=== PATIENT | female | born 1985 | race Caucasian/White ===

== ENCOUNTER → 2017-11-30 | Outpatient (CLI) | payer OTHER ==
[2017-11-30 13:37] LABS: BASO % 0.6 % (0.0-1.0); EOS # 0.1 10^3/uL (0.0-0.50); EOS % 0.9 % (0.0-3.0); HEMATOCRIT 35.8 % (36.0-47.0); HEMOGLOBIN 12.2 g/dl (12.0-15.5); IMMATURE GRANULOCYTE % 0.9 % (0-3.0); LYMPH # 1.5 10^3/uL (1.5-4.5); LYMPH % 22.2 % (24.0-44.0); MEAN CORPUSCULAR HEMOGLOBIN 30.3 pg (27.0-33.0); MEAN CORPUSCULAR HGB CONC 34.1 g/dl (32.0-36.5); MEAN CORPUSCULAR VOLUME 89.1 fl (80.0-96.0); MONO # 0.3 10^3/uL (0.0-0.8); MONO % 4.5 % (0.0-5.0); NEUTROPHILS # 4.9 10^3/uL (1.8-7.7); NEUTROPHILS % 70.9 % (36.0-66.0); PLATELET COUNT, AUTOMATED 189 10^3/uL (150-450); RED BLOOD COUNT 4.02 10^6/uL (4.00-5.40); RED CELL DISTRIBUTION WIDTH 13.2 % (11.5-14.5); WHITE BLOOD COUNT 6.8 10^3/uL (4.0-10.0)
[2017-11-30 15:02] LABS: GLUCOSE CHALLENGE TEST 1 HOUR 117 MG/DL (LESS THAN 140)
[2017-11-30 15:18] LABS: CHLAMYDIA DNA AMPLIFICATION NEGATIVE (NEGATIVE); GC DNA AMPLIFICATION NEGATIVE (NEGATIVE)
[2017-11-30 17:19] LABS: ESTIMATED AVERAGE GLUCOSE 100 MG/DL (60-110); HEMOGLOBIN A1c 5.1 %
[2017-12-01 11:54] LABS: RUBELLA IgG QUALITATIVE IMMUNE (IMMUNE)
[2017-12-01 11:59] LABS: HBsAg Prenatal NEGATIVE (NEGATIVE)
[2017-12-01 12:25] LABS: HEPATITIS C VIRUS ABY INDEX 0.2 INDEX (<0.8)
[2017-12-01 12:26] LABS: HIV 1&2 SCREEN CENTAUR NEGATIVE (NEGATIVE)
== END ==
LOC: M SMT 10:14
DX: Z34.82 Encounter for supervision of other normal pregnancy, second trimester (principal); Z3A.18 18 weeks gestation of pregnancy

== ENCOUNTER → 2018-01-13 | Outpatient (REF) | payer OTHER | LOC: M LAB REF 16:55 | DX: Z34.82 Encounter for supervision of other normal pregnancy, second trimester (principal); Z3A.00 Weeks of gestation of pregnancy not specified | CPT/HCPCS: 87086 ==

== ENCOUNTER → 2018-01-19 | Outpatient (REF) | payer OTHER | LOC: M LAB REF 17:04 | DX: Z34.82 Encounter for supervision of other normal pregnancy, second trimester (principal); Z3A.00 Weeks of gestation of pregnancy not specified | CPT/HCPCS: 87086 ==

== ENCOUNTER 2018-01-23 19:36 | Outpatient (CLI) | payer OTHER | END 2018-01-23 21:09 | disposition home or self-care (01) | LOC: M LDO 19:36 | DX: O26.892 Other specified pregnancy related conditions, second trimester (principal); R10.9 Unspecified abdominal pain; Z3A.26 26 weeks gestation of pregnancy | CPT/HCPCS: G0463 ==

== ENCOUNTER → 2018-01-25 | Outpatient (CLI) | payer OTHER | LOC: M RAD 16:18 | DX: Z34.82 Encounter for supervision of other normal pregnancy, second trimester (principal); Z36.89 Encounter for other specified antenatal screening; Z3A.26 26 weeks gestation of pregnancy | CPT/HCPCS: 76816 ==

== ENCOUNTER → 2018-07-22 | Outpatient (REF) | payer OTHER ==
[2018-07-29 08:21] LABS: HPV HYBRID CAPTURE II Negative (Negative)
== END ==
LOC: M LAB REF 17:28
DX: Z12.4 Encounter for screening for malignant neoplasm of cervix (principal)
CPT/HCPCS: G0123

== ENCOUNTER 2018-08-04 12:12 | Outpatient (RCR) | payer OTHER ==
[~2018-08-04 12:12] MED LIST: MAGN200T PO; PRENTAB9 PO; TYLE325C PO
== END 2018-08-08 ==
LOC: M PT 12:12
PROVIDERS: ATTEND Advanced Practice Midwife
DX: N39.3 Stress incontinence (female) (male) (principal)

== ENCOUNTER → 2018-08-31 | Outpatient (CLI) | payer OTHER ==
[2018-08-31 12:00] LABS: BASO # 0.1 10^3/uL (0.0-0.2); BASO % 1.7 % (0.0-1.0); EOS # 0.1 10^3/uL (0.0-0.50); EOS % 2.7 % (0.0-3.0); HEMOGLOBIN 13.4 g/dl (12.0-15.5); LYMPH # 1.7 10^3/uL (1.5-4.5); LYMPH % 36.1 % (24.0-44.0); MEAN CORPUSCULAR HEMOGLOBIN 29.2 pg (27.0-33.0); MEAN CORPUSCULAR HGB CONC 33.5 g/dl (32.0-36.5); MEAN CORPUSCULAR VOLUME 87.1 fl (80.0-96.0); MONO # 0.4 10^3/uL (0.0-0.8); MONO % 7.3 % (0.0-5.0); NEUTROPHILS # 2.5 10^3/uL (1.8-7.7); PLATELET COUNT, AUTOMATED 229 10^3/uL (150-450); RED BLOOD COUNT 4.59 10^6/uL (4.00-5.40); WHITE BLOOD COUNT 4.8 10^3/uL (4.0-10.0)
[2018-08-31 12:20] LABS: ALBUMIN 3.7 GM/DL (3.2-5.2); ALT/SGPT 25 U/L (12-78); BILIRUBIN,TOTAL 0.2 MG/DL (0.2-1.0); BLOOD UREA NITROGEN 17 MG/DL (7-18); CALCIUM LEVEL 8.6 MG/DL (8.5-10.1); CARBON DIOXIDE LEVEL 26 MEQ/L (21-32); CHLORIDE LEVEL 109 MEQ/L (98-107); GLOMERULAR FILTRATION RATE > 60.0 (>60); GLUCOSE, FASTING 92 MG/DL (70-100); LIPASE 301 U/L (73-393); POTASSIUM SERUM 4.4 MEQ/L (3.5-5.1); SODIUM LEVEL 142 MEQ/L (136-145); TOTAL PROTEIN 6.9 GM/DL (6.4-8.2)
[2018-08-31 12:39] LABS: HEMOGLOBIN A1c 4.8 %
[2018-09-06 14:55] LABS: ANTINUCLEAR ANTIBODIES DIRECT Negative (Negative); DQ2(DQ1A 0501/0505,DQB1 02XX) Positive (.); DQ8(DQA1 03XX, DQB1 0302) Negative (.); UNITSIGA FOR GLIADIN IGA 33 units (0-19); UNITSIGG FOR GLIADIN IGG 17 units (0-19)
== END ==
LOC: M SMT 08:05
PROVIDERS: ATTEND Physician Assistant
DX: K51.50 Left sided colitis without complications (principal); J34.1 Cyst and mucocele of nose and nasal sinus; Z13.29 Encounter for screening for other suspected endocrine disorder

== ENCOUNTER 2018-09-06 08:51 | Outpatient (RCR) | payer OTHER | END 2018-09-08 | LOC: M PT 08:51 | PROVIDERS: ATTEND Advanced Practice Midwife | DX: N39.3 Stress incontinence (female) (male) (principal) ==

== ENCOUNTER → 2018-09-16 | Outpatient (CLI) | payer OTHER ==
--- NOTE | 2018-09-16 19:21 | REP ---
MAXILLOFACIAL CT WITHOUT CONTRAST: HISTORY: Nasal polyp. Minimal mucosal thickening is present in the maxillary sinuses. The remaining sinuses are clear. The ostiomeatal units are patent. The middle and inferior nasal turbinates are partially paradoxical. There is minimal deviation of the nasal septum to the right. The nasal septum abuts the right middle and inferior nasal turbinates. The cribriform plate, medial john of the orbits and optic canals are intact. The carotid canals form a segment of the posterolateral john of the sphenoid sinus. Soft tissue density is present in the left nasal passage. This represents a polyp. The left frontal sinus is hypoplastic. IMPRESSION: 1. Sinus mucosal thickening as described above. 2. Left nasal passage polyp. Electronically Signed by Boo Thrasher MD 09/19/2018 08:20 A
== END ==
LOC: M RAD 16:00
PROVIDERS: ATTEND Otolaryngology
DX: J33.9 Nasal polyp, unspecified (principal); J32.0 Chronic maxillary sinusitis

== ENCOUNTER 2018-09-21 08:56 | Outpatient (RCR) | payer OTHER | END 2018-10-06 | LOC: M PT 08:56 | PROVIDERS: ATTEND Advanced Practice Midwife | DX: N39.3 Stress incontinence (female) (male) (principal) ==

== ENCOUNTER → 2018-10-31 | Outpatient (CLI) | payer OTHER ==
[2018-11-03 00:09] LABS: ANCA-ATYPICAL <1:20 titer (Neg:<1:20); CYTOPLASMIC NEUTROP AB ANCA-C <1:20 titer (Neg:<1:20); PERINUCLEAR AB ANCA-P <1:20 titer (Neg:<1:20)
== END ==
LOC: M SMT 08:40
PROVIDERS: ATTEND Physician Assistant
DX: R14.0 Abdominal distension (gaseous) (principal); R19.07 Generalized intra-abdominal and pelvic swelling, mass and lump; R10.33 Periumbilical pain; R10.31 Right lower quadrant pain; R19.5 Other fecal abnormalities; K62.5 Hemorrhage of anus and rectum; K90.0 Celiac disease; Z83.79 Family history of other diseases of the digestive system

== ENCOUNTER → 2019-03-01 | Outpatient (CLI) | payer OTHER ==
[2019-03-04 00:06] LABS: ENDOMYSIAL ABY IgA Negative (Negative); TISSUE TRANSGLUTAMINASE IgA <2 U/mL (0-3)
== END ==
LOC: M SMT 14:04
PROVIDERS: ATTEND Internal Medicine Gastroenterology
DX: R14.0 Abdominal distension (gaseous) (principal); R93.3 Abnormal findings on diagnostic imaging of other parts of digestive tract; K29.80 Duodenitis without bleeding; K90.0 Celiac disease; Z83.79 Family history of other diseases of the digestive system; K62.5 Hemorrhage of anus and rectum; R19.5 Other fecal abnormalities